=== PATIENT | female | born 1970 | race Caucasian/White ===

== ENCOUNTER → 2021-05-28 | Outpatient (CLI) | payer BC ==
--- NOTE | 2021-05-28 13:46 | KCIC ---
Bilateral digital screening mammograms with 3-D tomosynthesis: Reason for examination: Routine baseline screening. Bilateral mammograms in CC and oblique projections were obtained with 2-D imaging and 3-D tomosynthes is imaging on a Siemens Inspiration unit and reviewed on the workstation. Interpretation was made wit h the benefit of CAD. The skin and nipples show no abnormalities. No abnormal axillary lymph nodes are seen. The breast par enchyma shows scattered fatty and fibroglandular density. (Breast density: Category B.) There is a lo bulated circumscribed nodule with coarse calcifications located in the retroareolar 12:00 position of the left breast measuring approximately 3 cm in greatest dimensions and probably representing a fibr oadenoma. There is also an additional smaller 1.1 cm nodule with calcification present anteriorly at the 2:00 position of the left breast approximately 4.5 cm from the nipple and also probably represent ing a small fibroadenoma. There are no other dominant masses, suspicious calcifications or architectu ral distortion. Benign calcifications are present. Impression: 3 cm lobulated circumscribed nodule with calcifications in the central 12:00 B position of the left b reast 5 cm deep to the nipple. 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 1.1 cm circumscribed nodule with calcifications at the 2:00 position of the left breast 4.5 cm from t he nipple also probably representing a small fibroadenoma. Recommend further evaluation with ultrasound. BI-RADS Category 3: Probably Benign. "Our facility is accredited by the [employer] Mammography [employer]." This patient's information has been entered into a reminder system for the patient to be notified wit h the results of her examination and a target date for the next mammogram. Electronically signed by: Aurora Yeager MD (05/28/2021 1:44 PM) [email or web address]
== END ==
LOC: KCIC MAMMO 12:55
PROVIDERS: ATTEND Family Medicine
DX: Z12.31 Encounter for screening mammogram for malignant neoplasm of breast (principal)
CPT/HCPCS: 77063; 77067

== ENCOUNTER → 2021-06-10 | Outpatient (CLI) | payer BC ==
--- NOTE | 2021-06-10 08:48 | KCIC ---
Left breast ultrasound: Reason for examination: Nodules on screening mammogram. Comparison is made to mammographic exam dated 05/28/2021. Ultrasound examination of the left breast and axilla was performed. At the 12:00 position 5 cm from the nipple, there is a 2.9 cm hypoechoic heterogeneous mass in parall el orientation which contains echogenic flecks consistent with calcifications. This may represent a p hyllodes tumor. Further evaluation with ultrasound-guided biopsy is recommended. At the 2:00 position 4.5 cm from the nipple, there is a 1.1 cm hypoechoic nodule with some calcification which probably r epresents a fibroadenoma. There is some ductal ectasia in the retroareolar position. No abnormal appe aring lymph nodes are seen in the axilla. IMPRESSION: 2.9 cm hypoechoic heterogeneous mass at the 12:00 position 5 cm from the nipple which contains calcif ication. Phyllodes tumor cannot be excluded. Recommend ultrasound-guided biopsy. BI-RADS Category 4: Suspicious. These findings were discussed with the patient and Dr. Blair' medical clerk, Emanuel, was notified a bout these findings at 8:42 AM on 06/10/2021. "Our facility is accredited by the [employer]ammography [employer]." This patient's information has been entered into a reminder system for the patient to be notified wit h the results of her examination and a target date for the next mammogram. Electronically signed by: Aurora Yeager MD (06/10/2021 8:45 AM) [id number]
== END ==
LOC: KCIC US 08:03
PROVIDERS: ATTEND Family Medicine
DX: N63.21 Unspecified lump in the left breast, upper outer quadrant (principal)
CPT/HCPCS: 76641

== ENCOUNTER → 2021-06-23 | Outpatient (CLI) | payer BC ==
--- NOTE | 2021-06-23 13:52 | RAD ---
EXAM: Ultrasound-guided core biopsy left breast; unilateral postbiopsy mammogram. CLINICAL HISTORY: Left breast mass TECHNIQUE AND FINDINGS: Risks, benefits, treatment options, and potential complications were discussed with the patient. Cons ent was obtained and the patient indicated willingness to proceed. A time out was performed immediate ly prior to the procedure to correctly identify the patient, side, site, and type of procedure to be performed. The patient was placed supine on the ultrasound table. Sonographic guidance was used to target the le garry(s) of concern in the left breast. The overlying skin was marked, prepped, and draped in usual st erile fashion. Local anesthesia was administered using 1% lidocaine in the skin and in the deeper sof t tissues. Under imaging guidance, a 14-gauge core biopsy device was advanced to the margin of the lesion(s) and 6 core samples were obtained. Biopsy samples were placed in formalin and sent to pathology for histo pathologic analysis. An omega biopsy marker clip was then advanced to the site of biopsy utilizing e same guidance technique. Good hemostasis was achieved with light manual compression and sterile jesika ssing was applied. The patient was then transferred to the mammography suite for craniocaudal and med iolateral oblique views. Postbiopsy mammogram demonstrates immediate postbiopsy changes and an omega biopsy marker clip in exp ected position along the anterior margin of the mass within the space voided by biopsy. The patient tolerated the procedure without difficulty and was discharged to home in stable condition with postbiopsy care instructions. IMPRESSION: Successful ultrasound-guided biopsy of left breast mass and postbiopsy clip placement. Pathology is p ending. Please refer to the separate report submitted by the Department of Pathology for specimen lamin abrams. Electronically signed by: Benjamin Paul DO (06/23/2021 1:50 PM) [place] [id number]
== END | disposition home or self-care (01) ==
LOC: US 12:10
PROVIDERS: ATTEND Surgery
DX: N63.20 Unspecified lump in the left breast, unspecified quadrant (principal); R92.8 Other abnormal and inconclusive findings on diagnostic imaging of breast
CPT/HCPCS: 19083; 77065; A4648; C1819

== ENCOUNTER 2021-07-05 13:44 | Emergency (ER) | payer BC ==
[~2021-07-05] VITALS: Ht 165.1 cm; Wt 91.0 kg
[2021-07-05] MEDS ORDERED: KETOROLAC 30 MG/ML VIAL. IM ONE (14:30)
--- NOTE | 2021-07-05 15:03 | RAD ---
INDICATION: Reason: pain, swelling / Spl. Instructions: / History: COMPARISON: None. IMPRESSION: Left knee: 3 views obtained. Degenerative changes are seen in all 3 compartments which appear moderat e in severity with a large amount of osteophyte formation. A definite acute fracture line is not seen . No evidence of dislocation. There is a knee joint effusion as well as edema within the subcutaneous soft tissues and Hoffa's fat. There is some calcifications in the soft tissues seen adjacent to the distal femur posteriorly. Only partially seen. Calcific atherosclerosis. There is some fragmentation seen at the tibial tubercle region with chronic appearance. Electronically signed by: Peyman Scott MD (07/05/2021 3:01 PM) [id number]
[2021-07-05] MEDS ORDERED: TRAM50TA PO (15:55)
--- NOTE | 2021-07-05 15:57 | PHYS DOC ---
Past Medical History Past Surgical History: Gastric Bypass, Other Additional Past Surgical Histo: Left Femur General Adult EDM: Chief Complaint: KNEE INJURY HPI: HPI: Patient is a 51 year old female who presents with left knee pain. Approximately 1 week ago, she was getting into her semitruck at an awkward angle. She states she had a biopsy on her shoulder and was forced to use her other arm to lift herself. She states that she twisted her knee and heard a "pop." She states the pain has been getting worse since and Tylenol is not helping. She rates her pain 3/10 at rest and 6/10 while walking. The pain does not radiate. Nothing has made the pain better. Patient denies any other trauma or injury. Review of Systems: Review of Systems: ROS negative or noncontributory except as mentioned in HPI. Heart Score: C/O Chest Pain: No Current Medications: Current Medications Medications (Trade) Dose Ordered Sig/Rock Start Time Stop Time Status Last Admin Dose Admin Ketorolac Tromethamine (Toradol 30mg Vial) 30 mg 1X ONCE 07/05/21 14:30 07/05/21 14:31 DC 07/05/21 14:36 30 MG Allergies: Allergies: Allergies Coded Allergies Type Severity Reaction Last Updated Verified No Known Drug Allergies 07/05/21 No Physical Exam: PE: Constitutional: Well developed, well nourished, no acute distress, non-toxic appearance. HENT: Normocephalic, atraumatic, bilateral external ears normal, nose normal. Eyes: EOMI, conjunctiva normal, no discharge. Neck: Normal range of motion, no tenderness, supple, no stridor. Skin: Warm, dry, no erythema, no rash. Extremities: Left knee edematous and tender to palpation, negative anterior drawer test, negative posterior drawer test. Extremities otherwise no tenderness, no cyanosis, no clubbing, ROM intact, no edema. Neurologic: Alert and oriented x4, normal motor function, normal sensory function, no focal deficits noted. Current Patient Data: Vital Signs: Vital Signs Date Time Temp Pulse Resp B/P (MAP) Pulse Ox O2 Delivery O2 Flow Rate FiO2 07/05/21 16:08 97 20 156/86 (109) 98 Room Air 07/05/21 13:48 98.3 124 18 177/91 (119) 98 Room Air 98.3 Radiology/Procedures: Radiology/Procedures: PROCEDURE: KNEE LEFT 3V INDICATION: Reason: pain, swelling / Spl. Instructions: / History: COMPARISON: None. IMPRESSION: Left knee: 3 views obtained. Degenerative changes are seen in all 3 compartments which appear moderate in severity with a large amount of osteophyte formation. A definite acute fracture line is not seen. No evidence of dislocation. There is a knee joint effusion as well as edema within the subcutaneous soft tissues and Hoffa's fat. There is some calcifications in the soft tissues seen adjacent to the distal femur posteriorly. Only partially seen. Calcific atherosclerosis. There is some fragmentation seen at the tibial tubercle region with chronic appearance. Electronically signed by: Peyman Scott MD (07/05/2021 3:01 PM) [id number] Course & Med Decision Making: Course & Med Decision Making Pertinent Labs and Imaging studies reviewed. (See chart for details) Patient is a 51-year-old female who presents with left knee pain for past week. Her injuries are likely soft tissue related. Plain films were ordered to rule out bony injury. Osteoarthritic changes are seen throughout the left knee. There are no acute bony abnormalities. Patient was placed in an Zain wrap and instructed to follow- up with orthopedics to obtain MRI evaluation. Return precautions were provided. Patient understands and is agreeable to discharge plan. Daniel Disclaimer: Daniel Disclaimer: This electronic medical record was generated, in whole or in part, using a voice recognition dictation system. Departure Departure Impression: Primary Impression: Pain and swelling of left knee Additional Impressions: Osteoarthritis Qualified Codes: M19.91 - Primary osteoarthritis, unspecified site Elevated blood pressure reading Disposition: HOME / SELF CARE / HOMELESS Condition: IMPROVED Referrals: MCKAY HANSEN MD (PCP) TOBY MALDONADO Jr. DO Patient Instructions: Knee Pain, [id number], RICE - Routine Care for Injuries, [id number] Additional Instructions: In addition to following up with orthopedics or your primary care provider for your knee pain, please visit your primary care provider regarding your elevated blood pressure. You may keep a blood pressure log until your next visit so that if necessary, your doctor can use this log to aid in decisions regarding medication additions or adjustments. EMERGENCY DEPARTMENT GENERAL DISCHARGE INSTRUCTIONS Thank you for coming to [facility] Emergency Department (ED) today and trusting us with you care. We trust that you had a positive experience in our Emergency Department. If you wish to speak to the department management, you may call the director at . YOUR FOLLOW UP INSTRUCTIONS ARE FOLLOWS: 1. Follow up with your primary care doctor. If you do not have a primary doctor, please ask for a resource list of physicians or clinics that may be able to assist you with follow up care. 2. The emergency provider has interpreted your imaging studies, if any were ordered. The radiology body specialist also reviewed them. If there is a change in the findings, you will be notified in 48 hours when at all possible. 3. If a lab test or culture has been done, your results will be reviewed and you will be notified if you need a change in treatment. 4. Follow instructions verbalized to you and refer to the printouts if needed. ADDITIONAL INSTRUCTIONS AND INFORMATION: 1. Your care today has been supervised by a physician who is specially trained in emergency care. Many problems require more than one evaluation for a complete diagnosis and treatment. We recommend that you schedule your follow up appointment as recommended to ensure complete treatment of you illness or injury. If you are unable to obtain follow up care and continue to have a problem, or if your condition worsens, we recommend that you return to the ED. 2. We are not able to safely determine your condition over the phone nor are we able to give sound medical advice over the phone. For these safety reasons, if you call for medical advice we will ask you to come to the ED for further evaluation. 3. If you have any questions regarding these discharge instructions please call the ED at . SAFETY INFORMATION: In the interest of safety, wellness, and injury prevention; we encourage you to wear your seat belt, if you smoke; quite smoking, and we encourage family to use a protective helmet for bicycling and other sporting events that present an increased risk for head injury. IF YOUR SYMPTOMS WORSEN OR NEW SYMPTOMS DEVELOP, OR YOU HAVE CONCERNS ABOUT YOUR CONDITION; OR IF YOUR CONDITION WORSENS WHILE YOU ARE WAITING FOR YOUR FOLLOW UP APPOINTMENT; EITHER CONTACT YOUR PRIMARY CARE DOCTOR, THE PHYSICIAN WHOSE NAME AND NUMBER YOU WERE GIVEN, OR RETURN TO THE ED IMMEDIATELY. Scripts Tramadol Hcl (TRAMADOL HCL) 50 Mg Tablet 50 MG PO DAILY PRN for PAIN, #12 TAB 0 Refills Prov: CHEYANNE MASON 07/05/21 CHEYANNE MASON Jul 05, 2021 15:57
[2021-07-05 16:08] VITALS: BP 156/86
== END 2021-07-05 16:00 | disposition home or self-care (01) ==
LOC: ER 13:44
DX: M25.562 Pain in left knee (principal); M17.12 Unilateral primary osteoarthritis, left knee; R22.42 Localized swelling, mass and lump, left lower limb; Z95.1 Presence of aortocoronary bypass graft
CPT/HCPCS: 73562; 96372; 99283; J1885

== ENCOUNTER 2021-07-30 08:09 | Day surgery (SDC) | payer BC ==
[~2021-07-30] VITALS: Ht 165.1 cm; Wt 91.0 kg
[~2021-07-30 08:09] MED LIST: HYDROmorphone 2 MG/ML INJ. IVP PRN; IV RINGERS,LACTATED 1000ML 1,000 ML IV SCH; MORPHINE SULFATE 2 MG/ML INJ. IVP PRN; PROCHLORPERAZINE 10 MG/2 ML VIAL. IVP PRN; TRAM50TA PO; fentaNYL PF VIAL 100 MCG/2 ML VIAL IVP PRN
[2021-07-30] MEDS ORDERED: LOSA1TAB19 PO (08:20)
[2021-07-30] MEDS ORDERED: VERA240C2 PO (08:20)
[2021-07-30 08:36] VITALS: BP 139/82
[2021-07-30] MEDS ORDERED: BUPIVACAINE MPF 0.25% 30 ML VIAL. ONE (08:37)
[2021-07-30] MEDS ORDERED: BUPIVACAINE-EPI 0.25%-1:200000 MPF 30 ML VIAL. ONE (08:38)
[2021-07-30] MEDS ORDERED: SCOPOLAMINE 1.5MG PATCH. TD ONE (08:45)
[2021-07-30] MEDS ORDERED: MIDAZOLAM HCL/PF 2 MG/2 ML VIAL. ONE (08:56)
[2021-07-30] MEDS ORDERED: LIDOCAINE 2% PF 5 ML VIAL. ONE (08:56)
[2021-07-30] MEDS ORDERED: fentaNYL PF VIAL 100 MCG/2 ML VIAL ONE ×2 (08:56→09:52)
[2021-07-30] MEDS ORDERED: PROPOFOL 10 MG/ML (20ML) VIAL. IV ONE (08:56)
[2021-07-30] MEDS ORDERED: KETOROLAC 30 MG/ML VIAL. ONE (08:56)
[2021-07-30] MEDS ORDERED: ONDANSETRON PF 4 MG/2 ML VIAL. ONE (08:57)
[2021-07-30] MEDS ORDERED: SEVOFLURANE 16 TO 30 MINUTES. IH ONE (08:57)
--- NOTE | 2021-07-30 09:44 | PDOC4 ---
OPERATIVE NOTE Date: Date: July 30, 2021 Pre-Op Diagnosis: 1. 51-year-old female osteoarthritis left knee 2. Degenerative meniscal tear left knee Post-Op Diagnosis: 1. 51-year-old female osteoarthritis left knee 2. Degenerative meniscal tear left knee 3. Status post left knee arthroscopy with debridement and chondroplasty Procedure Performed: 1. Diagnostic left knee arthroscopy with debridement and chondroplasty Surgeon: Nishant Anesthesia Type: General Blood Loss: 20 cc Specimans Obtained: None Complications: Patient tolerated procedure well without any complications. Operative Note: See dictation. PASHA GUADARRAMA July 30, 2021 09:44
[2021-07-30] MEDS ORDERED: ONDA4TAB12 PO (09:49)
[2021-07-30] MEDS ORDERED: OXYC5TAB88 PO (09:49)
[2021-07-30] MEDS ORDERED: ASPI325T8 PO (09:49)
--- NOTE | 2021-07-30 09:50 | DISCH ---
DISCHARGE INSTRUCTIONS Condition on Discharge Condition on Discharge: Stable Activity After Discharge Activity Instructions for Disc: Resume previous activity, Activity as tolerated Bathing Instructions: Shower-keep dressing dry Lifting Instructions after Dis: No heavy lifting Exercise Instruction after Dis: Walk 10 min, 3 x per day Driving Instructions after Dis: Do not drive (While taking narcotic pain medication) Diet after Discharge Diet after Discharge: Regular Wound Incision Care Wound/Incision Care: Ice to area for comfort, Keep wound/cast CDI, Keep wound elevated, Change dressing (Postoperative day #3) Contacting the DRHayley after DC Call your doctor for: If your condition worsens Follow-Up Follow up with: Follow-up with orthopedics in 1 to 2 weeks. [phone] PASHA GUADARRAMA July 30, 2021 09:50
[2021-07-30] MEDS: fentaNYL PF VIAL 100 MCG/2 ML VIAL IVP PRN ×2 (09:56→10:13)
--- NOTE | 2021-07-30 10:04 | OP ---
DATE OF SURGERY: 07/30/2021 PREOPERATIVE DIAGNOSES: Medial meniscal tear, degenerative joint disease, left knee. POSTOPERATIVE DIAGNOSIS: Severe degenerative joint disease, tricompartmental, left knee. SURGEON: Asif Dillard Jr, DO CABLE ARMORER OPERATOR: ABBE Andino ANESTHESIA: General. COMPLICATIONS: None. ESTIMATED BLOOD LOSS: 20 mL DESCRIPTION OF PROCEDURE: The patient was taken to the operative suite, given a general anesthetic. Left lower extremity was placed in a knee russell, prepped and draped in a sterile fashion. Inferomedial and inferolateral portals were established. Knee was insufflated with saline. Visualization of the patella noted this to be grade 2 and 3 changes of the femoral sulcus; however, there were deep grade 3 and grade 4 changes throughout the entire sulcus. Significant unstable fragmentation was noted at this point; therefore, a chondroplasty was completed along the area of the entire femoral sulcus. The undersurface of the patella was also smoothed and a synovectomy was completed at that point as well. No loose bodies were noted in this area upon entering the medial compartment, there were noted to be severe grade 3 and grade 4 changes within the medial compartment with again a significant unstable fragmentation, especially along the femoral side of the joint with grade 3 changes on the tibial side of the joint. This was debrided back to stable tissue and the remnant revealed again grade 3 and grade 4 changes. The ACL and the PCL were noted to be intact and stable as was the meniscus medially with probing. There was only fraying of the meniscus. No júnior tears. Scope was then taken into the lateral compartment at approximately 30 degrees of flexion, there was a grade 4 lesion that measures approximately 1 cm x 7 cm. This was down to bone with a very large unstable fragment that was removed in its entirety down to the remaining tissue. No further loose fragmentation was noted at this point, this was debrided and again unfortunately grade 4 changes and 3 changes throughout the entire knee in all compartments. No new problems were noted. Therefore, this was thoroughly irrigated and suctioned dry. All instruments were removed. Local was placed in the portal sites. The wounds were reapproximated using 3-0 nylon. Sterile dressing was applied. The patient was then taken from the operative bed to the postoperative bed, taken to the PACU in stable condition. [place] DR: Princess TID: [id number]
[2021-07-30] MEDS ORDERED: oxyCODONE IR 5 MG TABLET ONE (10:07)
[2021-07-30 10:11] VITALS: BP 124/78
[2021-07-30] MEDS ORDERED: oxyCODONE IR 5 MG TABLET PO ONE (10:15)
== END 2021-07-30 10:40 | disposition home or self-care (01) ==
LOC: SURG 08:09
PROVIDERS: ATTEND Orthopaedic Surgery
DX: S83.242A Other tear of medial meniscus, current injury, left knee, initial encounter (principal); M17.12 Unilateral primary osteoarthritis, left knee; I10 Essential (primary) hypertension; E78.00 Pure hypercholesterolemia, unspecified; Z98.51 Tubal ligation status; Z98.890 Other specified postprocedural states; Z79.899 Other long term (current) drug therapy; X58.XXXA Exposure to other specified factors, initial encounter; Y93.89 Activity, other specified; Y92.89 Other specified places as the place of occurrence of the external cause; Y99.8 Other external cause status
CPT/HCPCS: 29877; A4930; J0690; J1885; J2250; J2405; J2704; J3010; J3490